=== PATIENT | female | born 1970 | race Caucasian/White ===

== ENCOUNTER 2025-02-01 19:40 | Emergency (ER) | payer BC, SELFPAY ==
[2025-02-01] VITALS (23 sets, daily range): BP systolic 120–181; BP diastolic 67–111
[2025-02-01] MEDS: CARDIZEM 25 MG IV (20:16)
--- NOTE | 2025-02-01 20:31 | ED.GENMED ---
History of Present Illness
<Johnathan Olivera PA-C - Last Filed: 02/01/25 23:47>
General
Chief Complaint: Heart Rate Problem
Time Seen by Provider: 02/01/25 20:09
History of Present Illness
History of Present Illness:
54-year-old female with no significant past medical history presents for evaluation of a rapid heart rate. States she was out to dinner within the past hour when she suddenly began feeling heart palpitations which have not resolved. Denies any
chest pain or shortness of breath. No dizziness or lightheadedness.
Review of Systems
<Johnathan Olivera PA-C - Last Filed: 02/01/25 23:47>
Review of Systems
Allergies reviewed?: Yes
All Other Systems: ROS reviewed and negative except as documented in HPI and ROS
Phy Exam
<Johnathan Olivera PA-C - Last Filed: 02/01/25 23:47>
Physical Exam
Physical Exam:
GEN: Well appearing, NAD, WDWN
HEENT: Oral mucosa moist, no scleral icterus
Cardiac: Markedly tachycardic and irregular, no murmur
Lung: No respiratory distress, no tachypnea, lungs clear to auscultation bilaterally
MSK: No gross deformity or injuries
Skin: Good color, no pallor or jaundice, no rashes
Neuro: AO x3, moves all extremities freely
Psych: Calm, cooperative
Course
<Johnathan Olivera PA-C - Last Filed: 02/01/25 23:47>
Orders/Labs/Results
Orders:
Orders
02/01/25 19:44
ECG [Electrocardiogram (*1)] Urgent
Reason for Study: Palpitations
02/01/25 19:45
EKG- Treatment ONCE
02/01/25 20:12
Diltiazem 125 mg/125 ml Nss [Cardizem] 125 mg in 125 ml .ROUTE .STK-MED
Diltiazem HCl [Cardizem] 25 mg .ROUTE .STK-MED ONE
02/01/25 20:15
Diltiazem HCl [Cardizem] 25 mg IV NOW STA
02/01/25 20:30
Diltiazem HCl [Cardizem] 30 mg IV NOW STA
02/01/25 20:57
Complete Blood Count/With Diff Urgent
TSH Reflex To Free T4 Urgent
02/01/25 21:03
EKG- Treatment ONCE
02/01/25 21:11
Propofol [Diprivan] 20 ml .ROUTE .STK-MED
02/01/25 21:37
Comprehensive Metabolic Panel Urgent
02/01/25 22:20
EKG [Electrocardiogram (*1)] Urgent
Reason for Study: Atrial Fibrillation
EKG- Treatment ONCE
02/01/25 22:46
Apixaban [Eliquis] 5 mg PO NOW STA
Abnormal Lab Results
02/01/25 02/01/25
20:57 21:37
RBC 5.73 H 10^6/uL
(4.20-5.40)
Hct 47.4 H %
(37.0-47.0)
Absolute Lymphs (auto) 0.9 L 10^3/uL
(1.2-3.4)
Lymphocytes % 16.7 L %
(20.5-51.1)
Monocytes % 9.5 H %
(1.7-9.3)
Glucose 165 H mg/dl
(70-99)
02/01/25 20:57
02/01/25 21:37
Vital Signs
Initial and Last Documented VS:
Initial Vital Signs
Temp Pulse Resp BP Pulse Ox
97.9 F 138 18 181/111 98
02/01/25 19:53 03/14/25 19:53 02/01/25 19:53 02/01/25 19:53 02/01/25 19:53
Last Documented Vital Signs
Temp Pulse Resp BP Pulse Ox
98.1 F 76 16 133/79 98
02/01/25 22:31 02/01/25 22:50 02/01/25 22:50 02/01/25 22:50 02/01/25 22:50
<Dillon Moya, DO - Last Filed: 02/01/25 22:41>
Orders/Labs/Results
Orders:
Orders
02/01/25 19:44
ECG [Electrocardiogram (*1)] Urgent
Reason for Study: Palpitations
02/01/25 19:45
EKG- Treatment ONCE
02/01/25 20:12
Diltiazem 125 mg/125 ml Nss [Cardizem] 125 mg in 125 ml .ROUTE .STK-MED
Diltiazem HCl [Cardizem] 25 mg .ROUTE .STK-MED ONE
02/01/25 20:15
Diltiazem HCl [Cardizem] 25 mg IV NOW STA
02/01/25 20:30
Diltiazem HCl [Cardizem] 30 mg IV NOW STA
02/01/25 20:57
Complete Blood Count/With Diff Urgent
TSH Reflex To Free T4 Urgent
02/01/25 21:03
EKG- Treatment ONCE
02/01/25 21:11
Propofol [Diprivan] 20 ml .ROUTE .STK-MED
02/01/25 21:37
Comprehensive Metabolic Panel Urgent
02/01/25 22:20
EKG [Electrocardiogram (*1)] Urgent
Reason for Study: Atrial Fibrillation
EKG- Treatment ONCE
02/01/25 22:46
Apixaban [Eliquis] 5 mg PO NOW STA
Abnormal Lab Results
02/01/25 02/01/25
20:57 21:37
RBC 5.73 H 10^6/uL
(4.20-5.40)
Hct 47.4 H %
(37.0-47.0)
Absolute Lymphs (auto) 0.9 L 10^3/uL
(1.2-3.4)
Lymphocytes % 16.7 L %
(20.5-51.1)
Monocytes % 9.5 H %
(1.7-9.3)
Glucose 165 H mg/dl
(70-99)
02/01/25 20:57
02/01/25 21:37
Vital Signs
Initial and Last Documented VS:
Initial Vital Signs
Temp Pulse Resp BP Pulse Ox
97.9 F 138 18 181/111 98
02/01/25 19:53 02/01/25 19:53 02/01/25 19:53 02/01/25 19:53 02/01/25 19:53
Last Documented Vital Signs
Temp Pulse Resp BP Pulse Ox
98.1 F 76 16 133/79 98
02/01/25 22:31 02/01/25 22:50 02/01/25 22:50 02/01/25 22:50 02/01/25 22:50
Procedures
<Johnathan Olivera PA-C - Last Filed: 02/01/25 23:47>
Cardioversion
Indication:: Afib
Performed by:: Johnathan Olivera PA-C
Synchronized?: Yes
Energy Used: 150 joules
Number of attempts: 1
Successful?: Yes
Complications: none
ASA Risk Score: Class I
Any reaction or bad outcome to prior sedation/anesthesia?: No history of a reaction
Sedation level to be attained: moderate
Chart and allergies reviewed: Yes
Patient reassessed prior to sedation: Yes
Time out completed at (validating right patient & procedure): 22:10
History of difficult intubation: No
Airway free of obstruction: Yes
Patient has a gag reflex: Yes
Patient is able to open mouth: Yes
Patient has no dentures: Yes
Patient has no loose teeth: Yes
Medication administered by Provider during Moderate Sedation: IV Propofol (mg)
Total dose administered: 100
Time drug administered: 22:11
Start Time: 22:11
Stop Time: 22:21
<Johnathan Olivera PA-C - Last Filed: 02/01/25 23:47>
MDM/Problems Addressed
MDM/Problems Addressed:
Patient with new onset rapid A-fib, was initially treated with IV diltiazem x 2 however there was no significant improvement in heart rates thus the decision was then made to cardiovert the patient given the clearly acute presentation of her A-fib.
Patient was cardioverted successfully without complications. Will start the patient on Eliquis and metoprolol, recommend outpatient cardiology follow-up
<Johnathan Olivera PA-C - Last Filed: 02/01/25 23:47>
*Critical Care Note
Total Time (30-74mins, 75-104mins- exclusive of procedures): Not Applicable
ED Attending Note
<Johnathan Olivera PA-C - Last Filed: 02/01/25 23:47>
-
Portions of this chart may have been created with voice recognition software.� Occasional wrong word or��sound alike� substitutions may have occurred due to the inherent limitations of voice recognition software.
<Dillon Moya, - Last Filed: 02/01/25 22:41>
ED Attending Note
Patient seen and examined by attending physician: Yes
ED Attending Note:
I have reviewed and agree with history treatment plan by Dada Olivera. My exam revealed 54-year-old female in rapid atrial flutter, that began today. No prior history. Cardioversion successful. Stable for discharge and follow-up with cardiology.
Discharge Plan
Departure
Patient Disposition: Home (Routine Discharge)
Date of Disposition: 02/01/25
Time of Disposition: 22:44
Patient with high blood pressure during this ER visit?: No
Discharge Problem:
Atrial fibrillation with RVR
Instructions: Atrial Fibrillation (DC), Procedural Sedation, Adult ED, Chest Pain CBC Follow Up
Prescriptions:
New
metoprolol succinate 25 mg tablet extended release 24 hr
25 mg PO DAILY Qty: 30 0RF
Eliquis 5 mg tablet
5 mg PO BID Qty: 60 0RF
Referrals:
Paco Herbert MD [Active] -
Alonso Anaya MD [Family Provider] -
Interventions
Interventions:
*General Assessment Last Done: 02/01/25 22:44
*Neglect/Abuse Screening Last Done: 02/01/25 22:44
*ED- Fall Risk Assessment Last Done: 02/01/25 22:44
*Nursing Disposition Last Done: 02/01/25 22:59
ED- Cardiac Assessment Last Done: 02/01/25 19:55
ED- Pulmonary Assessment Last Done: 02/01/25 19:55
Discharge Date and Time
Discharge Date/Time: 02/01/25 22:59
Print Language: PORTUGUESE
[2025-02-01] MEDS: CARDIZEM 30 MG IV (20:43)
[2025-02-01 21:05] LABS: % Eosinophils 2.9 % (0-6); % Immature Granulocytes 0.4 % (0-0.5); % Lymphocytes 16.7 % (20.5-51.1); % Monocytes 9.5 % (1.7-9.3); % Neutrophils 69.5 % (42.2-75.2); Absolute Basophils 0.1 10^3/uL (0-0.2); Absolute Eosinophils 0.2 10^3/uL (0-0.7); Absolute Lymphocytes 0.9 10^3/uL (1.2-3.4); Absolute Monocytes 0.5 10^3/uL (0.1-0.6); Absolute Neutrophils 3.6 10^3/uL (1.4-6.5); Hematocrit 47.4 % (37.0-47.0); Hemoglobin 15.9 g/dL (12.0-16.0); Mean Corp Hgb Conc. 33.5 g/dL (33.0-37.0); Mean Corpuscular Hgb 27.7 pg (27.0-31.0); Mean Corpuscular Volume 82.7 fL (81.0-99.0); Mean Platelet Volume 7.9 fL (7.4-10.4); Nucleated Red Blood Cells % 0 %; Platelet Count 206 10^3/uL (130-400); Red Blood Cell Count 5.73 10^6/uL (4.20-5.40); Red Cell Dist. Width 14.1 % (11.5-14.5); White Blood Cell Count 5.2 10^3/uL (4.8-10.8)
[2025-02-01 21:53] LABS: TSH Reflex To Free T4 3.48 uIU/ml (0.47-4.68)
[2025-02-01 21:59] LABS: ALT (SGPT) 25 U/L (0-35); AST (SGOT) 24 U/L (14-36); Albumin 4.3 g/dl (3.5-5.0); Alkaline Phosphatase 88 U/L (38-126); Blood Urea Nitrogen 11 mg/dl (7-17); Calcium 9.4 mg/dl (8.4-10.2); Carbon Dioxide 25 mmol/L (22-30); Chloride 103 mmol/L (98-107); Glucose 165 mg/dl (70-99); Potassium 3.7 mmol/L (3.5-5.1); Sodium 136 mmol/L (135-145); Total Bilirubin 1.1 mg/dl (0.2-1.3); Total Protein 7.7 g/dl (6.3-8.2); eGFR > 60.00
[2025-02-01] MEDS: ELIQUIS 5 MG PO (22:53)
== END 2025-02-01 22:59 | disposition home or self-care (01) ==
LOC: EMR 19:40
PROVIDERS: Physician Assistant; EMERGENCY PHYSICIAN Emergency Medicine; FAMILY PHYSICIAN Family Medicine
DX: I48.91 Unspecified atrial fibrillation (principal); Z79.01 Long term (current) use of anticoagulants
CPT/HCPCS: 99284; 92960; 96374; 96376; 80053; 84443; 85025; 93005

== ENCOUNTER → 2025-02-25 07:57 | Outpatient (REF) | payer BC, SELFPAY | LOC: HWRCS 07:57 | PROVIDERS: ATTENDING PHYSICIAN Internal Medicine Cardiovascular Disease; FAMILY PHYSICIAN Family Medicine | DX: I48.3 Typical atrial flutter (principal) | CPT/HCPCS: 93306 ==

== ENCOUNTER → 2025-02-28 10:28 | Outpatient (REF) | payer BC, SELFPAY | LOC: RCS 10:28 | PROVIDERS: ATTENDING PHYSICIAN Internal Medicine Cardiovascular Disease | DX: I48.3 Typical atrial flutter (principal); R03.0 Elevated blood-pressure reading, without diagnosis of hypertension | CPT/HCPCS: 93017 ==